=== PATIENT | male | born 1970 | race Caucasian/White ===

== ENCOUNTER 2019-07-22 08:46 | Inpatient (IN) ==
[2019-07-22 09:19] LABS: Hematocrit (blood only) 44.8 % (42-52); Mean Corpuscular Hemoglobin 32.2 pg (25-34); Mean Corpuscular Hgb Conc 35.7 g/dL (32-36); Mean Corpuscular Volume 90.1 fL (80-100); Mean Platelet Volume 9.3 fL (7.4-10.4); Platelet Count 657 K/uL (130-400); RDW Standard Deviation 46.2 fL (36.4-46.3); Red Blood Count 4.97 M/uL (4.7-6.1); White Blood Count 17.56 K/uL (4.8-10.8)
[2019-07-22 09:40] LABS: Albumin Level 3.9 gm/dl (3.4-5.0); BUN Creatinine Ratio 13.9 (10-20); Calcium 9.6 mg/dl (8.5-10.1); Est GFR (African American) 110.8; Est GFR (Non-African American) 95.6; Potassium 3.7 mmol/L (3.5-5.1)
--- NOTE | 2019-07-22 09:40 | Emergency Department Note ---
History of Present Illness General Chief complaint: Abdominal Pain Stated complaint: PAIN IN LOWER RIGHT ABDOMEN Time Seen by Provider: 07/22/19 08:53 History of Present Illness Maximum Pain Intensity: 5 This is a 48-year-old male that presents to the emergency department via private vehicle with complaints of "pain in lower right abdomen". Patient states that for the past few days he has had right lower quadrant abdominal pain. The pain worsened this morning. He denies any fevers or chills. He denies any known trauma or injury. No diarrhea or constipation. No changes in food. The pain at rest is a 5-6/10 and with movement is an 8/10. He denies any pertinent past medical history. He is status post cholecystectomy/splenectomy. Home Medications Home Medications Medication Instructions Recorded Confirmed Type No Known Home Medications 07/22/19 07/22/19 History Allergies Allergy/AdvReac Type Severity Reaction Status Date / Time chlorhexidine AdvReac Intermediate rash Verified 07/22/19 10:55 Past Med/Surg History Medical History Mononucleosis Surgical History History of splenectomy Hx laparoscopic cholecystectomy Social History Preferred Language: Vietnamese Communication Ability: Effective Director Of Neurology Required: No Beliefs That Will Affect Care: None Current Living Situation: Spouse Other Information That Helps Us Care for You: No Feels Safe at Home: Yes Safety Concerns: Feels Safe At This Time Smoking Status: Never smoker Hx Alcohol Use: Yes Alcohol type: beer and hard liquor Hx Substance Use: No Review of Systems A total of 10 systems reviewed and were otherwise negative Physical Exam Vital Signs Vital Signs - 24 hr 07/22/19 08:48 07/22/19 10:04 07/22/19 11:26 Temperature 36.6 C Temperature Source Oral Pulse Rate 99 H Pulse Rate [Left Finger] 70 80 Pulse Rhythm Regular Pulse Strength Normal Respiratory Rate 20 18 18 Respiratory Effort / Characteristics Non-Labored Spontaneous Non-Labored Spontaneous Non-Labored Respiratory Depth Normal Normal Normal Respiratory Pattern Regular Blood Pressure 138/75 Blood Pressure [Left Arm] 125/71 132/69 Blood Pressure Mean 96 Blood Pressure Mean [Left Arm] 89 90 Blood Pressure Position Sitting Pulse Oximetry 97 99 99 Oxygen Delivery Method Room Air Room Air Room Air Sepsis Recent Fever Within 48 Hours No Sepsis Action Taken by Nursing No Action Required VITAL SIGNS - Vital signs and nursing notes were reviewed. Stable and afebrile. GENERAL -48-year-old male appearing his stated age who is in no acute distress. Communicates well with provider and answers questions appropriately. SKIN - Without rashes. No meningeal or petechial rash. HEAD - NC/AT. EYES - Sclera anicteric. EARS - No deformities of external structures noted on gross examination bilaterally. Tympanic membranes pearly yee without retraction or bulging. NOSE - Midline and without cyanosis. No epistaxis or purulent drainage noted. Septum midline without deviation or septal hematoma noted. MOUTH/OROPHARYNX - Without perioral cyanosis. NECK - Neck with FROM. No nuchal rigidity. LUNGS - Chest wall symmetric without accessory muscle use, intercostals retractions, or central cyanosis. Normal vesicular breath sounds CTA B/L. No wheezes, rales, or rhonchi appreciated. CARDIAC - RRR with S1/S2. No murmur, rubs, or gallops appreciated. ABDOMEN - Abdominal contour normal without pulsations or visible masses. BS normoactive all four quadrants. Right lower quadrant abdominal tenderness on examination. Patient is quite tender in this area. No palpable masses, hepatosplenomegaly, or ascites noted. EXTREMITIES - No clubbing or peripheral cyanosis.+5/5 strength noted in UE/LE bilaterally. NEUROLOGIC - Cranial nerves II through XII grossly intact. PSYCH - A&O, and cooperates fully with examiner. Pt is very pleasant and interacts well with examiner. Course Administered Medications Ioversol (Optiray 320 100ml) 94 ml IV ONCE PRN PRN Reason: Interaction Checking Stop: 07/26/19 10:13 Last Admin: 07/22/19 10:14 Dose: 94 ml Documented by: [id number] Discontinued Medications Acetaminophen (Tylenol) Confirm Administered Dose 650 mg .ROUTE .STK-MED ONE Stop: 07/22/19 13:26 Last Admin: 07/22/19 13:26 Dose: 650 mg Documented by: [id number] Piperacillin Sod/Tazobactam Sod (Zosyn) 4.5 gm in 120 mls @ 240 mls/hr IV NOW ONE Stop: 07/22/19 12:07 Last Infusion: 07/22/19 12:38 Dose: 0 mls/hr Documented by: [id number] Admin: 07/22/19 12:06 Dose: 240 mls/hr Documented by: [id number] Medical Decision Making Laboratory Data Result diagrams: 07/22/19 09:00 07/22/19 09:00 Lab Results 07/22/19 07/22/19 Range/Units 09:00 09:00 WBC 17.56 H (4.8-10.8) K/uL RBC 4.97 (4.7-6.1) M/uL Hgb 16.0 (14.0-18.0) g/dL Hct 44.8 (42-52) % MCV 90.1 (80-100) fL MCH 32.2 (25-34) pg MCHC 35.7 (32-36) g/dL RDW Std Deviation 46.2 (36.4-46.3) fL RDW Coeff of Ida 14.0 (11.5-14.5) % Plt Count 657 H (130-400) K/uL MPV 9.3 (7.4-10.4) fL Immature Gran % (Auto) 0.3 % Neut % (Auto) 47.5 % Lymph % (Auto) 37.2 % Leslie % (Auto) 11.7 % Eos % (Auto) 2.8 % Baso % (Auto) 0.5 % Immature Gran # (Auto) 0.06 H (0.00-0.02) K/uL Neut # (Auto) 8.32 H (1.4-6.5) K/uL Lymph # (Auto) 6.54 H (1.2-3.4) K/uL Leslie # (Auto) 2.05 H (0.11-0.59) K/uL Eos # (Auto) 0.50 (0-0.5) K/uL Baso # (Auto) 0.09 (0-0.2) K/uL Sodium 140 (136-145) mmol/L Potassium 3.7 (3.5-5.1) mmol/L Chloride 105 (98-107) mmol/L Carbon Dioxide 29 (21-32) mmol/L Anion Gap 6.0 (3-11) BUN 13 (7-18) mg/dl Creatinine 0.95 (0.6-1.4) mg/dl Est Cr Clr Drug Dosing 110.0 ml/min Est GFR ( Amer) 110.8 Est GFR (Non-Af Amer) 95.6 BUN/Creatinine Ratio 13.9 (10-20) Glucose 109 H (70-99) mg/dl Calcium 9.6 (8.5-10.1) mg/dl Magnesium 2.0 (1.8-2.4) mg/dl Total Bilirubin 0.7 (0.2-1) mg/dl AST 13 L (15-37) U/L ALT 32 (12-78) U/L Alkaline Phosphatase 62 (45-117) U/L Total Protein 8.9 H (6.4-8.2) gm/dl Albumin 3.9 (3.4-5.0) gm/dl Globulin 5.0 H (2.5-4.0) gm/dl Albumin/Globulin Ratio 0.8 L (0.9-2) Lipase 146 (73-393) U/L Imaging Data Radiologist's Impression: CT OF THE ABDOMEN AND PELVIS WITH CONTRAST CLINICAL HISTORY: Right lower quadrant abdominal pain. COMPARISON STUDY: None. TECHNIQUE: Following IV administration of 94 mL of Optiray-320, axial images of the abdomen and pelvis were obtained from the lung bases to the proximal femurs. Images were reviewed in the axial, sagittal, and coronal planes. IV contrast was administered without complication. Automated exposure control was utilized for the study. A dose lowering technique was utilized adhering to the principles of ALARA. CT DOSE: 454.66 mGy.cm FINDINGS: Lung bases are unremarkable. Fatty infiltration of the liver is noted. There is no biliary ductal dilatation status post cholecystectomy. The spleen is not visualized. There are suspected small splenules within the left upper quadrant. Kidneys, adrenal glands and pancreas are normal. There is no hydronephrosis. There is no evidence for a bowel obstruction. The appendix is normal in caliber, measuring 4 mm. There is mild right lower quadrant infiltration, located inferior to the cecum. There is no free air or abscess. No additional sites of infiltration are noted. Major vasculature is patent. IMPRESSION: Mild inflammation/infiltration within the right lower quadrant, located inferior to the cecum. The etiology for this finding is unclear as the appendix appears normal. No CT evidence for acute appendicitis. No bowel wall thickening. No free air or abscess. Differential considerations include an omental infarct or less likely epiploic appendagitis. Close clinical monitoring is recommended. If progressive symptoms, a short-term follow-up CT is recommended. Findings discussed with Yunior Gilliam at time of dictation. ACT 112: Negative or not required by law. Electronically signed by: Adolfo Rodriguez M.D. 07/22/2019 10:51 AM MDM Narrative Patient was seen and evaluated as above in room B8. Review was performed of nursing notes and vital signs. After obtaining a thorough history and physical examination the above work up was performed. He presents to us today with atraumatic right lower quadrant abdominal pain. He is nontoxic on exam. Vital signs stable. He is quite tender in the right lower quadrant. He still has the appendix. IV access was established and the above work-up was performed. He is leukocytosis of 17.56 without anemia. No emergent metabolic disturbance. Normal lipase. CT scan reveals mild inflammation/infiltration in the right lower quadrant. However, the appendix is normal. I discussed the findings with our general surgeon, Dr. Gardner. At this time it is recommended to initiate IV antibiotics, and then have the patient admitted to the hospital to observe his status. I then consulted the hospitalist. IV Zosyn ordered. Patient was in agreement. Please refer to further documentation regarding his stay. In the evaluation and treatment of this patient the following differential diagnoses were entertained: Acute appendicitis, diverticulitis, testicular torsion, hernia, epiploic appendagitis, infarction, among others. Impression & Plan RLQ abdominal pain Discharge Plan Visit Data *Final* Discharge Date/Time: 07/22/19 12:42 Chief Complaint: Abdominal Pain Stated Complaint: PAIN IN LOWER RIGHT ABDOMEN ED Provider: Cory Alvarez ED Midlevel Provider: Yunior Gilliam Discharge Problem: RLQ abdominal pain Patient Disposition: Admitted As Inpatient Condition: Good Discharge Instructions Interventions: ED Discharge Assessment Last Done: 07/22/19 12:42
[2019-07-22 09:43] LABS: Albumin Globulin Ratio 0.8 (0.9-2); Bilirubin,Total 0.7 mg/dl (0.2-1); Total Protein 8.9 gm/dl (6.4-8.2)
[2019-07-22 09:58] LABS: Basophils # (auto) 0.09 K/uL (0-0.2); Basophils % (auto) 0.5 %; Eosinophils % (auto) 2.8 %; Immature Granulocytes # (auto) 0.06 K/uL (0.00-0.02); Immature Granulocytes % (auto) 0.3 %; Lymphocytes # (auto) 6.54 K/uL (1.2-3.4); Lymphocytes % (auto) 37.2 %; Monocytes # (auto) 2.05 K/uL (0.11-0.59); Monocytes % (auto) 11.7 %; Neutrophils # (auto) 8.32 K/uL (1.4-6.5); Neutrophils % (auto) 47.5 %
[2019-07-22] MEDS ORDERED: IOVERSOL 100ml IV PRN (10:14)
--- NOTE | 2019-07-22 10:52 | CT Scan Report ---
CT OF THE ABDOMEN AND PELVIS WITH CONTRAST CLINICAL HISTORY: Right lower quadrant abdominal pain. COMPARISON STUDY: None. TECHNIQUE: Following IV administration of 94 mL of Optiray-320, axial images of the abdomen and pelvi s were obtained from the lung bases to the proximal femurs. Images were reviewed in the axial, sagitt al, and coronal planes. IV contrast was administered without complication. Automated exposure contro l was utilized for the study. A dose lowering technique was utilized adhering to the principles of A CRISTY. CT DOSE: 454.66 mGy.cm FINDINGS: Lung bases are unremarkable. Fatty infiltration of the liver is noted. There is no biliary ductal dilatation status post cholecystectomy. The spleen is not visualized. There are suspected smal l splenules within the left upper quadrant. Kidneys, adrenal glands and pancreas are normal. There is no hydronephrosis. There is no evidence for a bowel obstruction. The appendix is normal in caliber, measuring 4 mm. There is mild right lower quadrant infiltration, located inferior to the cecum. There is no free air or abscess. No additional sites of infiltration are noted. Major vasculature is paten t. IMPRESSION: Mild inflammation/infiltration within the right lower quadrant, located inferior to the cecum. The et iology for this finding is unclear as the appendix appears normal. No CT evidence for acute appendici tis. No bowel wall thickening. No free air or abscess. Differential considerations include an omental infarct or less likely epiploic appendagitis. Close clinical monitoring is recommended. If progressi ve symptoms, a short-term follow-up CT is recommended. Findings discussed with Yunior Gilliam at time of dictation. ACT 112: Negative or not required by law. Electronically signed by: Adolfo Rodriguez M.D. 07/22/2019 10:51 AM
[2019-07-22] MEDS ORDERED: PIPERACILLIN/TAZOBACTAM 4.5 GM/120 ML BAG IV ONE (11:38)
[2019-07-22] MEDS ORDERED: PIPERACILL/TAZOBAC CONSULT ACTIVE PRN (11:38)
--- NOTE | 2019-07-22 11:58 | Surgery Consultation ---
Date of Consultation July 22, 2019 Assessment & Plan (1) RLQ abdominal pain: Inflammatory process RLQ with normal appearing appendix. Would admit for observation, IV abx, serial labs and exams. Does not have any acute surgical findings at this time but we will continue to follow. as above. suspect epiploic appendagitis. antibiotics. repeat labs. will follow along. History of Present Illness History of Present Illness 48 y/o male with RLQ pain persistent for the past 3 days. Has been eating regular diet. No N/V or F/C. No change in bowel habits. No history of pain. Since the pain has continued he thought he should be evaluated for appendicitis. Allergies Allergy/AdvReac Type Severity Reaction Status Date / Time chlorhexidine AdvReac Intermediate rash Verified 07/22/19 10:55 Home Medications Home Medications Medication Instructions Recorded Confirmed Type No Known Home Medications 07/22/19 07/22/19 History Patient History Medical History (Updated 07/22/19 @ 12:03 by Epi David Jr, PA-C) Mononucleosis Surgical History (Updated 07/22/19 @ 12:01 by Epi David Jr, PA-C) History of splenectomy Hx laparoscopic cholecystectomy Social History Preferred Language: Belgian Communication Ability: Effective Motorcoach Operator Required: No Beliefs That Will Affect Care: None Current Living Situation: Spouse Other Information That Helps Us Care for You: No Feels Safe at Home: Yes Safety Concerns: Feels Safe At This Time Smoking Status: Never smoker Hx Alcohol Use: Yes Alcohol type: beer and hard liquor Hx Substance Use: No Review of Systems Constitutional: no fever, no chills and no anorexia Gastrointestinal: + abdominal pain; no nausea, no vomiting and no change in bowel habits Physical Exam Constitutional: WD/WN, vitals as above Respiratory: normal respiratory effort, lungs clear to auscultation Cardiovascular: RRR, no murmur, no edema Gastrointestinal (Abdomen): Inspection/Auscultation: abdomen not distended Percussion/Palpation: + abdomen tender (localized to RLQ), + guarding (voluntary) and abdomen soft Results & Data Vital Signs (Past 12 Hours) Vital Signs Temp Pulse Pulse Resp BP BP Pulse Ox 07/22/19 11:26 80 18 132/69 99 07/22/19 10:04 70 18 125/71 99 07/22/19 08:48 36.6 C 99 H 20 138/75 97 PG Care Time/CCT Total # of Minutes Spent Total Time Spent with Patient: Total time spent is greater than 50% in coordination of care (as documented) at patient's floor/unit and/or counseling patient: Coding Level of Care Code 54334 Inpt Consult Level 3 Diagnoses RLQ abdominal pain R10.31
--- NOTE | 2019-07-22 13:00 | History & Physical Report ---
Date of Service July 22, 2019 Assessment & Plan (1) RLQ abdominal pain: The etiology of his pain and tenderness is some inflammatory process in the right lower quadrant. Per report his appendix is normal and the differential diagnoses includes omental infarct or epiploic appendagitis. He is afebrile but has leukocytosis and thrombocytosis which are likely reactive. General surgery evaluated the patient and recommended admission to medicine with IV antibiotics. Zosyn was started in the ER which will be continued. He is status post splenectomy and Zosyn will have good coverage for encapsulated organisms as well as enteric organisms and anaerobes. We will give him clear liquid diet today and IV fluids. Present on Admission?: Yes History of Present Illness Chief Complaint: Right lower quadrant abdominal pain Primary Care Provider: Serene Garcia MD This is a 48-year-old male, who lives at home with his , and he came to the ER because of abdominal pain mainly located in the right lower quadrant. He stated that it started on Tuesday night and has progressively gotten worse since then. Movement makes the pain worse. He has not had any nausea or vomiting and he denied any diarrhea. He has not had any fever or chills. Review of systems was otherwise negative. He denies any runny nose, sore throat, chest pain, shortness of breath or problems urinating. He is relatively healthy and does not take any medications at home. Prior medical history includes splenic ruptur e due to infectious mononucleosis status post splenectomy in the . He has also had a cholecystectomy in the past. In the ER CT scan of the abdomen and pelvis with IV contrast showed inflammation in the right lower quadrant but with a normal appendix. Differential diagnosis mentioned on the reading included omental infarct versus epiploic appendagitis. General surgery was consulted who recommended admission to medicine with surgery consult. They did not think that he needed anything surgical for this. Allergies Allergy/AdvReac Type Severity Reaction Status Date / Time chlorhexidine AdvReac Intermediate rash Verified 07/22/19 10:55 Home Medications Home Medications Medication Instructions Recorded Confirmed Type No Known Home Medications 07/22/19 07/22/19 History Past Med/Surg History Medical History (Updated 07/22/19 @ 12:03 by Epi David Jr, PA-C) Mononucleosis Surgical History (Updated 07/22/19 @ 12:01 by Epi David Jr, PA-C) History of splenectomy Hx laparoscopic cholecystectomy Social History Preferred Language: Polish Communication Ability: Effective Third Hand Required: No Beliefs That Will Affect Care: None Current Living Situation: Spouse Other Information That Helps Us Care for You: No Feels Safe at Home: Yes Safety Concerns: Feels Safe At This Time Smoking Status: Never smoker Hx Alcohol Use: Yes Alcohol type: beer and hard liquor Hx Substance Use: No Review of Systems Review of Systems: All systems reviewed & are unremarkable except as noted in HPI & below Physical Exam Physical Exam: General: Alert and oriented x 3. NAD HENT: Normocephalic, atraumatic, pupils round and equally reactive to light, oral mucosa: moist Neck: Supple, no lymph nodes palpated, no thyromegaly CVS: Normal S1, S2. No murmur, rub or gallop. PMI non displaced. Peripheral pulses normal. Resp: Normal percussion. Normal breath sounds bilaterally. No wheezing or rales heard Abdomen: Soft, severe tenderness in the right lower quadrant, no hepatosplenomegaly. Bowel sounds positive Extremities: No pitting edema Neuro: Power 5/5 throughout, grossly normal sensations, DTR's normal Psychiatry: Normal mood, normal thought process Results & Data Vital Signs (Past 12 Hours) Vital Signs Temp Pulse Pulse Resp BP BP Pulse Ox 07/22/19 12:42 82 18 131/77 99 07/22/19 11:26 80 18 132/69 99 07/22/19 10:04 70 18 125/71 99 07/22/19 08:48 36.6 C 99 H 20 138/75 97 Laboratory Results Laboratory Results - last 24 hr 07/22/19 07/22/19 09:00 09:00 WBC 17.56 H RBC 4.97 Hgb 16.0 Hct 44.8 MCV 90.1 MCH 32.2 MCHC 35.7 RDW Std Deviation 46.2 RDW Coeff of Iad 14.0 Plt Count 657 H MPV 9.3 Immature Gran % (Auto) 0.3 Neut % (Auto) 47.5 Lymph % (Auto) 37.2 Sterling % (Auto) 11.7 Eos % (Auto) 2.8 Baso % (Auto) 0.5 Immature Gran # (Auto) 0.06 H Neut # (Auto) 8.32 H Lymph # (Auto) 6.54 H Sterling # (Auto) 2.05 H Eos # (Auto) 0.50 Baso # (Auto) 0.09 Sodium 140 Potassium 3.7 Chloride 105 Carbon Dioxide 29 Anion Gap 6.0 BUN 13 Creatinine 0.95 Est Cr Clr Drug Dosing 110.0 Est GFR ( Amer) 110.8 Est GFR (Non-Af Amer) 95.6 BUN/Creatinine Ratio 13.9 Glucose 109 H Calcium 9.6 Magnesium 2.0 Total Bilirubin 0.7 AST 13 L ALT 32 Alkaline Phosphatase 62 Total Protein 8.9 H Albumin 3.9 Globulin 5.0 H Albumin/Globulin Ratio 0.8 L Lipase [address] abdomen pelvis with IV contrast Mild inflammation/infiltration within the right lower quadrant, located inferior to the cecum. The etiology for this finding is unclear as the appendix appears normal. No CT evidence for acute appendicitis. No bowel wall thickening. No free air or abscess. Differential considerations include an omental infarct or less likely epiploic appendagitis. Close clinical monitoring is recommended. If progressive symptoms, a short-term follow-up CT is recommended. Findings discussed with Yunior Gilliam at time of dictation. Code Status & VTE Plan VTE Prophylaxis Plan VTE Prophylaxis will be ordered: No
[2019-07-22] MEDS ORDERED: HYDROmorphone INJ 0.5 MG/0.5 ML SYR IV PRN (13:21)
[2019-07-22] MEDS ORDERED: ACETAMINOPHEN 325 MG TAB ONE (13:25)
[2019-07-22] MEDS: PIPERACILLIN/TAZOBACTAM 3.375 GM in DEXTROSE 5% 100 ML IV SCH (16:07)
[2019-07-22] MEDS: ACETAMINOPHEN 325 MG TAB PO PRN (20:04)
[2019-07-23] MEDS: PIPERACILLIN/TAZOBACTAM 3.375 GM in DEXTROSE 5% 100 ML IV SCH ×3 (01:09→15:55)
[2019-07-23] MEDS: ACETAMINOPHEN 325 MG TAB PO PRN ×4 (04:47→23:24)
[2019-07-23 06:02] LABS: Basophils # (auto) 0.06 K/uL (0-0.2); Basophils % (auto) 0.4 %; Eosinophils # (auto) 0.54 K/uL (0-0.5); Hematocrit (blood only) 44.1 % (42-52); Hemoglobin 15.1 g/dL (14.0-18.0); Immature Granulocytes # (auto) 0.05 K/uL (0.00-0.02); Immature Granulocytes % (auto) 0.4 %; Lymphocytes # (auto) 4.05 K/uL (1.2-3.4); Lymphocytes % (auto) 29.9 %; Mean Corpuscular Hemoglobin 31.5 pg (25-34); Mean Corpuscular Hgb Conc 34.2 g/dL (32-36); Mean Corpuscular Volume 91.9 fL (80-100); Mean Platelet Volume 9.7 fL (7.4-10.4); Monocytes # (auto) 1.66 K/uL (0.11-0.59); Monocytes % (auto) 12.3 %; Neutrophils # (auto) 7.17 K/uL (1.4-6.5); Platelet Count 619 K/uL (130-400); RDW Coefficient of Variation 14.1 % (11.5-14.5); RDW Standard Deviation 47.1 fL (36.4-46.3); White Blood Count 13.53 K/uL (4.8-10.8)
[2019-07-23 06:38] LABS: BUN Creatinine Ratio 11.5 (10-20); Calcium 9.4 mg/dl (8.5-10.1); Creatinine Clr Calc Pharmacy 103.5 ml/min; Est GFR (African American) 102.9; Est GFR (Non-African American) 88.8; Potassium 3.8 mmol/L (3.5-5.1)
--- NOTE | 2019-07-23 08:45 | Surgery Progress Note ---
Date of Service July 23, 2019 Assessment & Plan (1) RLQ abdominal pain: WBC improved can have full liquids continue IV abx at least another 24 hours as above. feels about the same. wbc slightly improved. can have full liquids but will make NPO after MN. recheck WBC tomorrow. continue iv antibiotics. Subjective some improvement, no F/C Physical Exam Gastrointestinal (Abdomen): Percussion/Palpation: + abdomen tender (less) and abdomen soft; no guarding Results & Data Vital Signs (Past 12 Hours) Vital Signs Temp Pulse Resp BP Pulse Ox 07/23/19 07:19 36.9 C 74 18 136/84 95 07/22/19 22:16 37.0 C 69 18 122/74 97 PG Care Time/CCT Total # of Minutes Spent Total Time Spent with Patient: Total time spent is greater than 50% in coordination of care (as documented) at patient's floor/unit and/or counseling patient: Coding Level of Care Code 86097 Subseq Hosp Care Lvl 3 Diagnoses RLQ abdominal pain R10.31
--- NOTE | 2019-07-23 15:47 | Hospitalist Progress Note ---
Date of Service July 23, 2019 Assessment & Plan (1) RLQ abdominal pain: Right lower quadrant Pain (Differential considerations include an omental infarct or less likely epiploic appendagitis.) Leukocytosis Thrombocytosis History of Splenectomy -as per admission History and physical on 07/22/2019 "This is a 48-year-old male, who lives at home with his , and he came to the ER because of abdominal pain mainly located in the right lower quadrant. He stated that it started on Tuesday night and has progressively gotten worse since then. Movement makes the pain worse. He has not had any nausea or vomiting and he denied any diarrhea. He has not had any fever or chills. Review of systems was otherwise negative. He denies any runny nose, sore throat, chest pain, shortness of breath or problems urinating. He is relatively healthy and does not take any medications at home. Prior medical history includes splenic rupture due to infectious mononucleosis status post splenectomy in the . He has also had a cholecystectomy in the past. In the ER CT scan of the abdomen and pelvis with IV contrast showed inflammation in the right lower quadrant but with a normal appendix. Differential diagnosis mentioned on the reading included omental infarct versus epiploic appendagitis. General surgery was consulted who recommended admission to medicine with surgery consult." -07/23/2019 patient has been on empiric IV Zosyn with white blood cell counts trending down from 15 thousand to 13 thousand. Platelets remain elevated above 600 thousand. Patient denies fevers at home and no fever to date. He continues to have abdominal tenderness that is worse with palpitation and with ambulation. however while generally laying on the bed he is not in acute distress He is allowed to have meals as per general surgery but they will have patient NPO after midnight for re-assessment on 07/24/2019. will continue supportive care of prn pain medications. DVT prophylaxis SCDs Admission and Anticipated Discharge Date Admission Date: July 22, 2019 is admission date. Discharge date unclear at this time Subjective patient has been on empiric IV Zosyn with white blood cell counts trending down from 15 thousand to 13 thousand. Platelets remain elevated above 600 thousand. Patient denies fevers at home and no fever to date. He continues to have abdominal tenderness that is worse with palpitation and with ambulation. however while generally laying on the bed he is not in acute distress He is allowed to have meals as per general surgery but they will have patient NPO after midnight for re-assessment on 07/24/2019. no chest pain. no shortness of breath. no dizziness. no lightheadedness. no vomiting. no nausea. no acute problems with bowel movements or urination Review of Systems Review of Systems: All systems reviewed & are unremarkable except as noted in HPI & below Physical Exam Constitutional: WD/WN, vitals as above Eyes: PERRL, conjunctivae normal, anicteric sclerae EOM intact bilaterally ENMT: external ear and nose normal, oropharynx normal Neck: trachea midline, no thyromegaly normal visual inspection Respiratory: normal respiratory effort, lungs clear to auscultation Cardiovascular: Rate/Rhythm: regular rate and regular rhythm Gastrointestinal (Abdomen): Percussion/Palpation: abdomen soft (tenderness to palpation of abdomen. bowel sounds present) Musculoskeletal: Head/Neck/Chest: normocephalic and head atraumatic Neurologic: PERRL, EOMI, accommodation nl, no face palsy, no dysarthria CN' s II-XI intact bilaterally Psychiatric: A+Ox3, euthymic affect Results & Data ([facility]) Vital Signs (Past 12 Hours) Vital Signs Temp Pulse Resp BP Pulse Ox 07/23/19 14:58 36.7 C 73 20 136/77 95 07/23/19 07:19 36.9 C 74 18 136/84 95
[2019-07-23] MEDS ORDERED: OXYCODONE HCL IR 5 MG TAB (IMMEDIATE RELEASE) PO PRN (15:52)
[2019-07-23] MEDS ORDERED: HYDROmorphone INJ 0.5 MG/0.5 ML SYR IV PRN (15:53)
[2019-07-24] MEDS: PIPERACILLIN/TAZOBACTAM 3.375 GM in DEXTROSE 5% 100 ML IV SCH ×2 (01:33→08:29)
[2019-07-24 06:25] LABS: Basophils # (auto) 0.05 K/uL (0-0.2); Basophils % (auto) 0.4 %; Eosinophils # (auto) 0.31 K/uL (0-0.5); Eosinophils % (auto) 2.3 %; Hematocrit (blood only) 42.6 % (42-52); Hemoglobin 15.3 g/dL (14.0-18.0); Immature Granulocytes # (auto) 0.03 K/uL (0.00-0.02); Immature Granulocytes % (auto) 0.2 %; Lymphocytes # (auto) 4.16 K/uL (1.2-3.4); Lymphocytes % (auto) 31.3 %; Mean Corpuscular Hemoglobin 31.9 pg (25-34); Mean Corpuscular Hgb Conc 35.9 g/dL (32-36); Mean Corpuscular Volume 88.9 fL (80-100); Mean Platelet Volume 9.1 fL (7.4-10.4); Monocytes # (auto) 1.39 K/uL (0.11-0.59); Monocytes % (auto) 10.5 %; Neutrophils # (auto) 7.35 K/uL (1.4-6.5); Neutrophils % (auto) 55.3 %; Platelet Count 648 K/uL (130-400); RDW Coefficient of Variation 13.6 % (11.5-14.5); RDW Standard Deviation 44.5 fL (36.4-46.3); Red Blood Count 4.79 M/uL (4.7-6.1); White Blood Count 13.29 K/uL (4.8-10.8)
[2019-07-24 07:10] LABS: BUN Creatinine Ratio 9.7 (10-20); Calcium 9.8 mg/dl (8.5-10.1); Creatinine Clr Calc Pharmacy 101.5 ml/min; Est GFR (African American) 100.5; Est GFR (Non-African American) 86.7; Potassium 3.8 mmol/L (3.5-5.1)
--- NOTE | 2019-07-24 07:47 | Surgery Progress Note ---
Date of Service July 24, 2019 Assessment & Plan (1) RLQ abdominal pain: WBC stable from yesterday (13), patient afebrile clinically patient feels his symptoms are improving will trial a low fiber diet today cont abx will reassess pt this afternoon as above. pt seen. feeling much better today tolerated regular diet minimal RLQ ttp. no g/r/r ok from my standpoint for d/c. recommend 10-14 days of oral antibiotics Subjective Patient feeling well this AM. Still has some RLQ pain to touch, but otherwise he feels as though the pain has subsided. Had two bouts of loose stool. Tolerated liquids without n/v. Physical Exam Physical Exam: awake/alert Constitutional: well developed and well nourished; no acute distress Gastrointestinal (Abdomen): Inspection/Auscultation: abdomen not distended Percussion/Palpation: + abdomen tender (mild ttp in rlq) and abdomen soft Results & Data Vital Signs (Past 12 Hours) Vital Signs Temp Pulse Resp BP BP Pulse Ox 07/24/19 07:25 36.8 C 84 18 118/74 92 07/23/19 23:30 36.9 C 98 H 18 126/79 95 PG Care Time/CCT Total # of Minutes Spent Total Time Spent with Patient: Total time spent is greater than 50% in coordination of care (as documented) at patient's floor/unit and/or counseling patient: Coding Level of Care Code 59991 Subseq Hosp Care Lvl 1 Diagnoses RLQ abdominal pain R10.31
[2019-07-24] MEDS ORDERED: ASPIRIN 81 MG ECTAB PO SCH (13:30)
--- NOTE | 2019-07-24 13:48 | Hospitalist Progress Note ---
Date of Service July 24, 2019 Assessment & Plan (1) RLQ abdominal pain: Right lower quadrant Pain (Differential considerations include an omental infarct or less likely epiploic appendagitis.) Leukocytosis Thrombocytosis History of Splenectomy -as per admission History and physical on 07/22/2019 "This is a 48-year-old male, who lives at home with his , and he came to the ER because of abdominal pain mainly located in the right lower quadrant. He stated that it started on Tuesday night and has progressively gotten worse since then. Movement makes the pain worse. He has not had any nausea or vomiting and he denied any diarrhea. He has not had any fever or chills. Review of systems was otherwise negative. He denies any runny nose, sore throat, chest pain, shortness of breath or problems urinating. He is relatively healthy and does not take any medications at home. Prior medical history includes splenic rupture due to infectious mononucleosis status post splenectomy in the . He has also had a cholecystectomy in the past. In the ER CT scan of the abdomen and pelvis with IV contrast showed inflammation in the right lower quadrant but with a normal appendix. Differential diagnosis mentioned on the reading included omental infarct versus epiploic appendagitis. General surgery was consulted who recommended admission to medicine with surgery consult." -07/23/2019 patient has been on empiric IV Zosyn with white blood cell counts trending down from 15 thousand to 13 thousand. Platelets remain elevated above 600 thousand. Patient denies fevers at home and no fever to date. He continues to have abdominal tenderness that is worse with palpitation and with ambulation. however while generally laying on the bed he is not in acute distress He is allowed to have meals as per general surgery but they will have patient NPO after midnight for re-assessment on 07/24/2019. 07/24/2019: WBC remains 13,000 and platelets remain above 600,000 discharge to home and patient recommended low fiber diet by general surgery Patient prescribed trial of aspirin 81 mg daily because of thrombocytosis and sent electronically to [facility] [address], [place] [address] (discussed with patient and his family member that aspirin may increase risk of GI bleed or bleed from a surgery, but no surgical indications at this time and it may be possible that aspirin can alleviate inflammation from abdominal fat stranding in Differential considerations of an omental infarct or less likely epiploic appendagitis) Follow up with outpatient primary care services 07/27/2019 1:00 PM Provider Mello Romero MD [facility] Patient may need referral to hematology by primary care doctor if thrombocytosis does not resolved with hospital follow up. also needs follow CBC for luekocytosis Patient also prescribed pain medications of acetaminophen 325 mg every 6 hours as needed if mild pain or if fever for 5 day supply; oxycodone 5 mg every 6 hours as needed for moderate to severe pain (16 tablets prescribed) Patient has been afebrile to date. and also was treated empirically with IV Zosyn in the hospital. Patient defers oral antibiotics in discussions with medical doctor because of diarrhea (C.difficile is negative on 07/24/2019) Patient should return to hospital if worsening abdominal pain or if fevers develop Admission and Anticipated Discharge Date Admission Date: July 22, 2019 Subjective Patient reported less abdominal pain today. He was able to eat low fiber diet as ordered by general surgery joshua. He was able to ambulate without acute discomforts. Patient wishes to go home. no chest pain, no shortness of breath, no fever, no vomiting. no dizziness. no headache. Discharge plans and instructions discussed at length Review of Systems Review of Systems: All systems reviewed & are unremarkable except as noted in HPI & below Physical Exam Constitutional: WD/WN, vitals as above Eyes: PERRL, conjunctivae normal, anicteric sclerae EOM intact bilaterally ENMT: external ear and nose normal, oropharynx normal Neck: trachea midline, no thyromegaly normal visual inspection Respiratory: normal respiratory effort, lungs clear to auscultation Cardiovascular: Rate/Rhythm: regular rate and regular rhythm Gastrointestinal (Abdomen): Percussion/Palpation: abdomen soft (tenderness to palpation of abdomen. bowel sounds present) Musculoskeletal: Head/Neck/Chest: normocephalic and head atraumatic Neurologic: PERRL, EOMI, accommodation nl, no face palsy, no dysarthria CN's II-XI intact bilaterally Psychiatric: A+Ox3, euthymic affect Results & Data ([facility]) Vital Signs (Past 12 Hours) Vital Signs Temp Pulse Resp BP BP Pulse Ox 07/24/19 11:21 36.7 C 82 18 127/77 95 07/24/19 07:25 36.8 C 84 18 118/74 92
--- NOTE | 2019-07-24 13:49 | Discharge Summary ---
Date of Service July 24, 2019 Admission HPI Per Admitting Provider This is a 48-year-old male, who lives at home with his , and he came to the ER because of abdominal pain mainly located in the right lower quadrant. He stated that it started on Tuesday night and has progressively gotten worse since then. Movement makes the pain worse. He has not had any nausea or vomiting and he denied any diarrhea. He has not had any fever or chills. Review of systems was otherwise negative. He denies any runny nose, sore throat, chest pain, shortness of breath or problems urinating. He is relatively healthy and does not take any medications at home. Prior medical history includes splenic rupture due to infectious mononucleosis status post splenectomy in the . He has also had a cholecystectomy in the past. In the ER CT scan of the abdomen and pelvis with IV contrast showed inflammation in the right lower quadrant but with a normal appendix. Differential diagnosis mentioned on the reading included omental infarct versus epiploic appendagitis. General surgery was consulted who recommended admission to medicine with surgery consult. They did not think that he needed anything surgical for this. Admission Exam Per Admitting Provider General: Alert and oriented x 3. NAD HENT: Normocephalic, atraumatic, pupils round and equally reactive to light, oral mucosa: moist Neck: Supple, no lymph nodes palpated, no thyromegaly CVS: Normal S1, S2. No murmur, rub or gallop. PMI non displaced. Peripheral pulses normal. Resp: Normal percussion. Normal breath sounds bilaterally. No wheezing or rales heard Abdomen: Soft, severe tenderness in the right lower quadrant, no hepatosplenomegaly. Bowel sounds positive Extremities: No pitting edema Neuro: Power 5/5 throughout, grossly normal sensations, DTR's normal Psychiatry: Normal mood, normal thought process Principal Diagnosis Right lower quadrant Pain (Differential considerations include an omental infarct or less likely epiploic appendagitis.) Leukocytosis Thrombocytosis History of Splenectomy Discharge Exam Constitutional WD/WN, vitals as above Eyes PERRL, conjunctivae normal, anicteric sclerae EOM intact bilaterally ENMT external ear and nose normal, oropharynx normal Neck trachea midline, no thyromegaly normal visual inspection Respiratory normal respiratory effort, lungs clear to auscultation Cardiovascular Rate/Rhythm: regular rate and regular rhythm Gastrointestinal (Abdomen) Percussion/Palpation: abdomen soft (tenderness to palpation of abdomen. bowel sounds present) Musculoskeletal Head/Neck/Chest: normocephalic and head atraumatic Neurologic PERRL, EOMI, accommodation nl, no face palsy, no dysarthria CN's II-XI intact bilaterally Psychiatric A+Ox3, euthymic affect Discharge Data Allergies Allergy/AdvReac Type Severity Reaction Status Date / Time chlorhexidine AdvReac Intermediate rash Verified 07/22/19 10:55 Consultations 07/22/19 11:41 ED Decision to Admit Stat Ordered Studies 07/22/19 08:58 CT abd pelvis IV con only Stat Hospital Course (1) RLQ abdominal pain: Right lower quadrant Pain (Differential considerations include an omental infarct or less likely epiploic appendagitis.) Leukocytosis Thrombocytosis History of Splenectomy -as per admission History and physical on 07/22/2019 "This is a 48-year-old male, who lives at home with his , and he came to the ER because of abdominal pain mainly located in the right lower quadrant. He stated that it started on Tuesday night and has progressively gotten worse since then. Movement makes the pain worse. He has not had any nausea or vomiting and he denied any diarrhea. He has not had any fever or chills. Review of systems was otherwise negative. He denies any runny nose, sore throat, chest pain, shortness of breath or problems urinating. He is relatively healthy and does not take any medications at home. Prior medical history includes splenic rupture due to infectious mononucleosis status post splenectomy in the . He has also had a cholecystectomy in the past. In the ER CT scan of the abdomen and pelvis with IV contrast showed inflammation in the right lower quadrant but with a normal appendix. Differential diagnosis mentioned on the reading included omental infarct versus epiploic appendagitis. General surgery was consulted who recommended admission to medicine with surgery consult." -07/23/2019 patient has been on empiric IV Zosyn with white blood cell counts trending down from 15 thousand to 13 thousand. Platelets remain elevated above 600 thousand. Patient denies fevers at home and no fever to date. He continues to have abdominal tenderness that is worse with palpitation and with ambulation. however while generally laying on the bed he is not in acute distress He is allowed to have meals as per general surgery but they will have patient NPO after midnight for re-assessment on 07/24/2019. 07/24/2019: WBC remains 13,000 and platelets remain above 600,000 discharge to home and patient recommended low fiber diet by general surgery Patient prescribed trial of aspirin 81 mg daily because of thrombocytosis and sent electronically to [address] [place] [address] (discussed with patient and his family member that aspirin may increase risk of GI bleed or bleed from a surgery, but no surgical indications at this time and it may be possible that aspirin can alleviate inflammation from abdominal fat stranding in Differential considerations of an omental infarct or less likely epiploic appendagitis) Follow up with outpatient primary care services 07/27/2019 1:00 PM Provider Mello Teixeira MD Department Family Practice [facility] Patient may need referral to hematology by primary care doctor if thrombocytosis does not resolved with hospital follow up. also needs follow CBC for luekocytosis Patient also prescribed pain medications of acetaminophen 325 mg every 6 hours as needed if mild pain or if fever for 5 day supply; oxycodone 5 mg every 6 hours as needed for moderate to severe pain (16 tablets prescribed) Patient has been afebrile to date. and also was treated empirically with IV Zosyn in the hospital. Patient defers oral antibiotics in discussions with medical doctor because of diarrhea (C.difficile is negative on 07/24/2019) Patient should return to hospital if worsening abdominal pain or if fevers develop Total Time Total Time Spent Total Time Spent (In Minutes): 40 minutes Total Time Includes: Examination of the Patient, Discharge Planning, Medication Reconciliation and Communication With Other Providers Discharge Plan Discharge Items Patient Disposition: Home - Self-Care Reason For Visit: EPIPLOIC APPENDACITIS Discharge Diagnosis: Right lower quadrant Pain (Differential considerations include an omental infarct or less likely epiploic appendagitis.) Leukocytosis Thrombocytosis History of Splenectomy Condition on Discharge: Good Activity: Per Instructions section Non-emergency contact: Primary Care Provider Call non-emergency contact if: you have any medication questions Follow-up/Referrals: Jonah Gardner DO [Surgeon] - Mello Teixeira MD [Outside Practitioners] - (PATIENT HAS A FOLLOW UP PREVIOUSLY SCHEDULED WITH DR Stacy TEIXEIRA. DR GARCIA, PCP IS NO LONGER WITH THE PRACTICE FYI.) Diet: Low Fiber Addtl Attending Provider Instructions: discharge to home and patient recommended low fiber diet by general surgery Patient prescribed trial of aspirin 81 mg daily because of thrombocytosis and sent electronically to [address] [address] (discussed with patient and his family member that aspirin may increase risk of GI bleed or bleed from a surgery, but no surgical indications at this time and it may be possible that aspirin can alleviate inflammation from abdominal fat stranding in Differential considerations of an omental infarct or less likely epiploic appendagitis) Follow up with outpatient primary care services 07/27/2019 1:00 PM Provider Mello Teixeira MD [facility] Patient may need referral to hematology by primary care doctor if thrombocytosis does not resolved with hospital follow up. also needs follow CBC for luekocytosis Patient also prescribed pain medications of acetaminophen 325 mg every 6 hours as needed if mild pain or if fever for 5 day supply; oxycodone 5 mg every 6 hours as needed for moderate to severe pain (16 tablets prescribed) Patient has been afebrile to date. and also was treated empirically with IV Zosyn in the hospital. Patient defers oral antibiotics in discussions with medical doctor because of diarrhea (C.difficile is negative on 07/24/2019) Patient should return to hospital if worsening abdominal pain or if fevers develop Pending Studies at Discharge: No Stand-Alone Forms: Call Back Authorization, [facility], Smoking Cessation Medications and DC Order Prescriptions: New aspirin [Ecotrin Low Strength] 81 mg Tablet,Delayed Release (Dr/Ec) 81 mg PO QAM 30 Days Qty: 30 RF: 0 acetaminophen 325 mg tablet 325 mg PO Q6H PRN (Reason: fever or pain) 4 Days Qty: 16 RF: 0 oxycodone 5 mg Tablet 5 mg PO Q6H PRN (Reason: moderate to severe pain) 4 Days Qty: 16 RF: 0 No Action No Known Home Medications RF: 0 Discharge Orders: Discharge Order (Routine); Ordered 07/24/19 Ordered By: Ghanshyam Freed Admission Data Admit Date/Time: 07/22/19 12:03 Attending Provider: Ghanshyam Freed Admit Provider: Liset Horn Primary Care Provider: Serene Garcia Other Providers: Liset Horn
== END 2019-07-24 15:10 | disposition home or self-care (01) | DRG 394 ==
LOC: ED 08:46 → SUATTDRO 12:03 → 2W 12:03